=== PATIENT | male | born 1950 | race Caucasian/White ===

== ENCOUNTER 2016-07-25 11:00 | Inpatient (IN) | payer MEDICARE ==
[~2016-07-25] VITALS: Ht 177.8 cm; Wt 114.3 kg
--- NOTE | ~2016-07-25 | OR ---
PATIENT'S NAME: CELIA [facility] AGE: 66 Y [address] ROOM: [facility] [place], [place] [address] LOCATION: [facility] ADMIT DATE: 08/07/2016 OR/Procedure Report DISCHARGE DATE: FAMILY PHYSICIAN: Luke Goldberg MD ATTENDING PHYSICIAN: ALEJO AZAR SURGEON: Alejo Azar MD AUDIO VIDEO TECH: 1. PROSPER Cordova. 2. Steven Leach CST/MATT. DATE OF PROCEDURE: 08/07/2016 PRE-OP DIAGNOSIS: Degenerative joint disease right knee. POST-OP DIAGNOSIS: Degenerative joint disease right knee. OPERATION: Right total knee arthroplasty with computer navigation. ANESTHESIA: Spinal anesthesia plus adductor canal block plus periarticular local anesthesia (ropivacaine with epinephrine and Toradol). ESTIMATED BLOOD LOSS: Less than 10 mL. DRAIN: None. SPECIMEN: None. COMPLICATIONS: None. IMPLANT SYSTEM: [employer] Triathlon Size 7 right posterior stabilized femoral component Size 6 universal modular tibial tray An 11 mm posterior stabilized, size 6 x3, tibial polyethylene insert A 38-mm oval x3 patella component. INDICATIONS FOR SURGERY: Sandip Yang is a 66-year-old male who presents with advanced right knee degenerative joint disease and associated severely compromised activities of daily living. The patient has decided to proceed with knee replacement after having been thoroughly counseled regarding the associated risks, benefits, and limitations. We have specifically reviewed the risks and implications of infection, deep venous thrombosis, pulmonary embolism, mortality, neurovascular complications, blood transfusion (and associated potential for disease transmission or transfusion reaction), stiffness, instability, mechanical deterioration of the components (due to wear and or loosening), and the potential need for revision. We have also emphasized the importance of active involvement and compliance with post- PATIENT'S NAME: JADEN [facility] AGE: 66 Y [address] ROOM: [facility] [place], [place] [address] LOCATION: [facility] ADMIT DATE: 08/07/2016 OR/Procedure Report DISCHARGE DATE: FAMILY PHYSICIAN: Luke Goldberg MD ATTENDING PHYSICIAN: ALEJO AZAR operative physical therapy as a means of optimizing range of motion and functional recovery. Informed consent has been granted. DESCRIPTION OF PROCEDURE: The patient was positioned supine after administration of anesthesia and prophylactic antibiotics. A well-padded pneumatic tourniquet was placed around the right proximal thigh, and the right lower extremity was prepped and draped with vigilant sterile technique. The patient's name as well as the intended operative side and procedure were confirmed with a verbal time-out involving myself, the circulating nurse, the scrub nurse, and the anesthesiologist. Examination under anesthesia demonstrated a moderate effusion. There was no erythema. There was no abnormal warmth. There was no deformity. Range of motion under anesthesia was from full extension to 130 degrees of flexion. There was no ligamentous insufficiency. The right lower extremity was elevated and exsanguinated with an Esmarch wrap, and the pneumatic tourniquet was inflated to 300mmHg. The knee was approached through a longitudinal midline incision. A medial parapatellar arthrotomy was performed and the patella was everted. Examination of the joint space demonstrated a moderate amount of benign- appearing translucent synovial fluid. There was a large popliteal cyst, which I decompressed into the posterior medial aspect of the joint by dilating its point of communication with the joint space. There was generalized mildly proliferative synovitis. There were no loose bodies. The cruciate ligaments were intact. There was a small osteophyte at the intercondylar notch. There was full-thickness loss of articular cartilage involving 90% of the medial femoral condyle and a 3 cm diameter region at the medial half of the medial tibial plateau. There was high-grade partial-thickness articular cartilage loss involving 90% of the femoral trochlea as well as at the equator. There was high-grade partial-thickness articular cartilage loss involving 90% of femoral trochlear as well as the apex of the patella and across the equator of the patella. There was a small osteophyte at the lateral margin of the patella. There was a 1 cm diameter region of full-thickness articular cartilage loss at the posterior aspect of the lateral femoral condyle. There was high-grade partial-thickness articular cartilage loss involving a 2 cm diameter region at the distal aspect of the lateral femoral condyle. There was 1-cm diameter of high grade partial thickness articular cartilage loss at the posterior aspect of the lateral tibial plateau. There was full-thickness articular cartilage fissuring at the lateral tibial plateau. The medial meniscus was truncated with extensive degenerative tearing of the remnant of the medial meniscus. There was mild inner perimeter tearing at the posterior half of the residual lateral meniscus. PATIENT'S NAME: SANDIP YANG [facility] AGE: 66 Y [address] ROOM: [id number] [place], [place] [address] LOCATION: [facility] ADMIT DATE: 08/07/2016 OR/Procedure Report DISCHARGE DATE: FAMILY PHYSICIAN: Luke Goldberg MD ATTENDING PHYSICIAN: ALEJO AZAR Remnants of the menisci and cruciate ligaments were excised. The Change Lane computer navigation femoral tracker was pinned in place at the distal aspect of the femoral trochlea. Absence of motion between the femur and the tracking device was confirmed manually and visually. Femoral osseous landmarks were obtained in order to calibrate the computer navigation system. Landmarks included the center of rotation of the ipsilateral hip, the center-point of the distal femur, the femoral AP axis, 57 points on the medial femoral condyle articular surface, and 57 points on the lateral femoral condyle articular surface. The Change Lane computer navigation system was subsequently utilized to position the distal femoral resection block such that the distal femoral resection was performed perfectly perpendicular to the femoral mechanical axis. The distal femoral resection was performed with a LifeVantage oscillating saw. The Change Lane computer navigation tibial tracker was pinned in place at the anterior aspect of the tibial plateau. Absence of motion between the tibia and the tracking device was confirmed manually and visually. Tibial osseous landmarks were obtained in order to calibrate the computer navigation system. Landmarks included the center-point of the tibial plateau, the AP tibial axis, 57 points on the medial tibial plateau articular surface, 57 points on the lateral tibial plateau articular surface, the medial malleolus, and the lateral malleolus. The Change Lane computer navigation system was subsequently utilized to position the proximal tibial resection block such that the proximal tibial resection was performed perfectly perpendicular to the tibial mechanical axis. The proximal tibial resection was performed with a SpotRight Precision oscillating saw. Perpendicularity of the tibial resection with respect to the tibial shaft axis was reconfirmed by inserting a spacer- block attached to an extramedullary guide diana. External rotation of the anterior and posterior femoral resections was set parallel to the epicondylar axis and carefully adjusted in order to create a rectangular flexion gap. The box resection was performed with a reciprocating saw. Anterior and posterior chamfer resections were performed with the oscillating saw. Posterior condyle osteophytes were excised with an osteotome. All other osteophytes were excised with a rongeur. Resection of all remnants of the menisci was reconfirmed. Flexion and extension gaps were confirmed to be symmetric and well balanced with a spacer-block technique. The patella resection was performed with an oscillating saw such that the composite thickness of the reconstructed patella was equivalent to the thickness of the chehalis patella. Patella tracking was optimal, and there was need for a lateral retinacular release was required. All trial components were removed and all prepared osseous surfaces were thoroughly irrigated with pulsatile saline lavage and dried prior to cementing PATIENT'S NAME: SANDIP YANG [facility] AGE: 66 Y [address] ROOM: [address] [address] LOCATION: [facility] ADMIT DATE: 08/07/2016 OR/Procedure Report DISCHARGE DATE: FAMILY PHYSICIAN: Luke Goldberg MD ATTENDING PHYSICIAN: ALEJO AZAR all three components in a single stage using SpotRight Simplex cement containing pre-mixed tobramycin. All extruded excess cement was removed. The entire joint space was thoroughly inspected and thoroughly irrigated with bacteriostatic pulsatile saline lavage to assure that there was no residual debris of any sort. Final range of motion was from full extension (with no passive hyperextension) degrees of extension to 130 degrees of flexion. Patella tracking was reconfirmed to be optimal. There was Excellent anteroposterior stability at 90 degrees of flexion. There was 0 mm of medial lift-off to valgus stress in full extension. There was less than 1 mm of lateral lift-off to varus stress in full extension. The arthrotomy was closed with multiple simple and [id number] interrupted #1 Vicryl. Subcutaneous tissues were thoroughly re-irrigated with bacteriostatic pulsatile saline lavage. Subcutaneous tissues were re- approximated with simple buried interrupted #0 Vicryl sutures. The skin was closed with simple buried interrupted 2-0 Vicryl sutures followed by surgical kelsey. The dressing consisted of Xeroform gauze, 4x4 gauze, ABD pads and two 6-inch Warren Wraps. There were no intra-operative complications. It should be noted that the physician's historian research assistant played an active, integral role throughout this entire operation. By providing expert retraction, they greatly facilitated and expedited safe and effective exposure of the distal femur, proximal tibia and patella for preparation and implantation of the components. They were also actively involved in the patient's positioning, prepping and draping, as well as wound closure. MD MILADYS MCKEON/tristen /[id number] d: 08/07/16 1753 t: 08/13/16 0104, OPERATIVE SUMMARY
--- NOTE | ~2016-07-25 | DS ---
PATIENT'S NAME: CELIA [facility] AGE: 66 Y [address] ROOM: [place] [address] LOCATION: [facility] ADMIT DATE: 08/07/2016 Discharge Summary DISCHARGE DATE: 08/09/2016 FAMILY PHYSICIAN: Luke Goldberg MD ATTENDING PHYSICIAN: Alejo Azar PRIMARY DIAGNOSIS: Degenerative joint disease of the right knee. SECONDARY DIAGNOSES: 1. Obesity with a BMI of 36. 2. Hypercholesterolemia. PROCEDURE PERFORMED: Right total knee arthroplasty. HISTORY: The patient is a 66-year-old male, who presents with advanced right knee degenerative joint disease and associated severely compromised activities of daily living. The patient has decided to proceed with total knee arthroplasty after having been thoroughly counseled regarding the risks, benefits, limitations, and alternatives. Please refer to the outpatient clinic notes and admission history and physical for this patient. HOSPITAL COURSE: The patient underwent a right total knee arthroplasty on 08/07/2016 without complications. Spinal anesthesia plus adductor canal block plus periarticular local anesthesia was utilized. The patient received 24 hours of perioperative prophylactic antibiotics and remained hemodynamically stable, neurovascularly intact throughout the entire hospital course. The postoperative prophylactic deep venous thrombosis prophylaxis consisted of Xarelto, early mobilization and pneumatic compression devices. Daily physical therapy for gait training, transfer training, range of motion and quadriceps isometric exercises were received. The patient progressed well in physical therapy. On the date of discharge, 08/09/2016, the incision at the knee was healing well and showed no signs of infection. DISPOSITION: Home. DISCHARGE ACTIVITY: The patient is to bear weight as tolerated with range of motion and quadriceps isometric exercises as instructed. The operative extremity is to be elevated at least 90% of the day. There is to be sterile 4x4 gauze dressings to the incision daily. Dr. Azar is to be notified immediately if there is any increased pain, fevers, chills, erythema, or drainage. DISCHARGE MEDICATIONS: 1. Xarelto 10 mg 1 tablet p.o. daily for 12 days for postoperative DVT prophylaxis. PATIENT'S NAME: DAVE YANG [facility] AGE: 66 Y [address] ROOM: [address] [address] LOCATION: [facility] ADMIT DATE: 08/07/2016 Discharge Summary DISCHARGE DATE: 08/09/2016 FAMILY PHYSICIAN: Luke Goldberg MD ATTENDING PHYSICIAN: Alejo Azar 2. Hydromorphone 2 mg 1 to 2 tablets p.o. every 4 hours p.r.n. for muscle spasms. 3. Diazepam 5 mg 1 tablet p.o. every 6 hours p.r.n. for muscle spasms. 4. Celebrex 1 tablet p.o. b.i.d. x7 days for pain. 5. Gabapentin 300 mg 1 tablet p.o. every night for 7 days for pain. He was then instructed to continue all his other pre-admission medications as instructed by his Internal Medicine doctor. FOLLOWUP: Followup appointment is to be with Dr. Azar's office on 08/14/2016 for his initial postoperative evaluation. ASHLEIGH DUARTE PA-C FOR ALEJO AZAR MD SMW/modl /[id number] d: 08/15/16 0319 t: 08/16/16 1344, DISCHARGE SUMMARY
[2016-07-25] MEDS ORDERED: LATANOPROST2.5 ML OPHTH (11:33)
[2016-07-25] MEDS ORDERED: ARTHRITIS PAIN650 M1 PO (11:33)
[2016-07-25] MEDS ORDERED: EYE VITAMIN-MI1 EACH PO (11:34)
[2016-07-25] MEDS ORDERED: VITAMIN D-32000 UNI1 PO (11:35)
--- NOTE | 2016-08-07 15:09 | NUR ---
Introduced self/role to patient and at bedside. Patient attended preop class. Reports he has walker, toilet seat, grab bars, bath seat at home. Has walk in shower available to him if needed. Plans to return home with help from Raquel. No needs identified at this time. Has foot pumps on bilat. Reviewed use of IS and encouraged use. Demonstrates use with excellent technique.
--- NOTE | 2016-08-07 17:49 | NUR ---
Significant Event: From PACU at 1330. Ambulates with one assist and walker. Dressing C/D/I. Ez wrap ice at all times. No void at this time. Dilaudid 2mg last at 1600 and Tylenol 1000mg at 1715. CSM WNL. Pleasant and cooperative with cares. Follow up:
--- NOTE | 2016-08-08 04:42 | NUR ---
Patient alert and oriented x3, VSS, csm with in normal limits, dressing is clean dry and intact, one assist with walker and gaitbelt, pain under control with oral diluadid, ice in place to knee
--- NOTE | 2016-08-08 09:10 | NUR ---
Introduced self/role to patient and his Raquel, [place]. They have all the DME they think they will need. Denied any barriers to going home or at home. They are planning to go home tomorrow. Added my name to his marker board.
--- NOTE | 2016-08-08 17:34 | NUR ---
A/O. 1 Assist with walker and gait belt. Moves well, have to tell him to slow down. CSM WNL. Dressing C/D/I. Block off this afternoon. Been keeping on top of pain with oral dilaudid q2h. Ice to knee. Pt complains of pain in upper Rt thigh when standing. VSS.
--- NOTE | 2016-08-08 19:29 | NUR ---
I was preceptor for student nurse Connie Armas and I agree with her charting for this shift
--- NOTE | 2016-08-09 04:21 | NUR ---
Patient alert and oriented x3, very pleasant and cooperative, VSS, did have a dose of toradol for increased pain, has rested well tongiht, dressing clean dry and intact, ice in place to knee, ambulates well stand by assist wtih walker and gaitbelt, taking oral dilaudid for pain control, plans to discharge home today
[2016-08-09] MEDS ORDERED: TYLENOL EXTRA500 MG PO (10:57)
[2016-08-09] MEDS ORDERED: NEURONTIN300 MG PO (11:00)
[2016-08-09] MEDS ORDERED: COLACE100 MG PO (11:00)
[2016-08-09] MEDS ORDERED: MIRALAX17 GM PO (11:02)
[2016-08-09] MEDS ORDERED: XARELTO10 MG PO (11:04)
[2016-08-09] MEDS ORDERED: DILAUDID 2MG(HYD2 MG PO (11:05)
[2016-08-09] MEDS ORDERED: VALIUM5 MG PO (11:07)
[2016-08-09] MEDS ORDERED: CELEBREX200 MG PO (11:07)
--- NOTE | 2016-08-09 15:11 | NUR ---
Pt up with stand by assist and walker. Wound was free from redness and minimal swelling. Pt has rated pain from 3-5 and is well controlled with Dilaudid pain med. Ice packs given to pt to take home. Pt was given discharge information. Med list was given and gone over. CSM WNL. VSS. All belowings and taken to door in wheelchair.
--- NOTE | 2016-08-09 16:32 | NUR ---
I was preceptor for student nurse Connie Armas this shift, and I agree with her charting
== END 2016-08-09 14:45 | disposition disaster alternative care site (69) | DRG 470 ==
LOC: G3N 08-07 08:04
PROVIDERS: ADMIT Orthopaedic Surgery
PROC: 0SRC0J9 Replacement of Right Knee Joint with Synthetic Substitute, Cemented, Open Approach (ICD-10-PCS; principal; 2016-08-07)
DX: M17.11 Unilateral primary osteoarthritis, right knee (principal); E66.9 Obesity, unspecified; H26.9 Unspecified cataract; E78.00 Pure hypercholesterolemia, unspecified; M71.21 Synovial cyst of popliteal space [Baker], right knee; Z68.36 Body mass index [BMI] 36.0-36.9, adult
CPT/HCPCS: C1713; C1776; J0690; J1100; J1885; J2001; J2795; J7030

== ENCOUNTER → 2016-07-27 | Outpatient (CLI) | payer MEDICARE ==
[~2016-07-27] MED LIST: ARTHRITIS PAIN650 M1 PO; CELEBREX200 MG PO; COLACE100 MG PO; DILAUDID 2MG(HYD2 MG PO; EYE VITAMIN-MI1 EACH PO; LATANOPROST2.5 ML OPHTH; MIRALAX17 GM PO; NEURONTIN300 MG PO; TYLENOL EXTRA500 MG PO; VALIUM5 MG PO; VITAMIN D-32000 UNI1 PO; XARELTO10 MG PO
== END | disposition disaster alternative care site (69) ==
LOC: GNJRC 10:55
DX: Z01.812 Encounter for preprocedural laboratory examination (principal); M17.11 Unilateral primary osteoarthritis, right knee